=== PATIENT | male | born 1935 | race Caucasian/White ===

== ENCOUNTER 2018-05-19 09:41 | Outpatient (CLI) | payer MEDICARE, OTHER ==
[2018-05-19] VITALS (22 sets, daily range): BP systolic 128–178; BP diastolic 60–91
[~2018-05-19 09:41] MED LIST: NEBI5TAB10 PO
== END 2018-05-19 23:59 | disposition home or self-care (01) ==
LOC: CARD DIAG 09:41
PROVIDERS: ATTEND Internal Medicine Cardiovascular Disease
DX: R42 Dizziness and giddiness (principal); I10 Essential (primary) hypertension; Z87.891 Personal history of nicotine dependence
CPT/HCPCS: 93660

== ENCOUNTER 2019-12-07 06:09 | Day surgery (SDC) | payer MEDICARE ==
[2019-12-06 15:39] LABS: BASOPHILS # (AUTO) 0.1 X10'3 (0-0.2); BASOPHILS % (AUTO) 0.8 % (0-1); EOSINOPHILS # (AUTO) 0.2 X10'3 (0-0.9); EOSINOPHILS % (AUTO) 2.3 % (0-6); HEMATOCRIT 36.9 % (42.0-52.0); HEMOGLOBIN 12.7 g/dl (14.0-17.9); LYMPHOCYTES # (AUTO) 2.3 X10'3 (1.1-4.8); LYMPHOCYTES % (AUTO) 28.8 % (21-51); MEAN CORPUSCULAR HGB CONC 34.5 g/dL (33.0-36.5); MEAN CORPUSCULAR VOLUME 89.8 FL (78-98); MEAN PLATELET VOLUME 8.9 FL (7.4-10.4); MONOCYTES # (AUTO) 0.8 X10'3 (0-0.9); MONOCYTES % (AUTO) 9.4 % (2-12); NEUTROPHILS # (AUTO) 4.7 X10'3 (1.8-7.7); NEUTROPHILS % (AUTO) 58.7 % (42-75); PLATELET COUNT 238 X10'3 (140-440); RED BLOOD COUNT 4.11 X10'6 (4.70-6.10); RED CELL DISTRIBUTION WIDTH 12.7 % (11.5-14.5)
[2019-12-06 15:44] LABS: ALBUMIN 2.9 G/DL (3.4-5.0); ANION GAP 6 (8-16); BLOOD UREA NITROGEN 40 MG/DL (7-18); BUN/CREATININE RATIO 15.3 (5.4-32.0); CALCIUM 8.6 MG/DL (8.5-10.1); CHLORIDE 105 MMOL/L (99-107); CREATININE 2.61 MG/DL (0.60-1.10); GLUCOSE 99 MG/DL (70-104); POTASSIUM 4.8 MMOL/L (3.5-5.1); SODIUM 138 MMOL/L (135-145); TOTAL CARBON DIOXIDE 26.9 MMOL/L (24-32); eGFR 24 ML/MIN
[2019-12-06 15:47] LABS: PARTIAL THROMBOPLASTIN TIME 26 SECONDS (22-32)
[2019-12-07] VITALS (12 sets, daily range): BP systolic 129–178; BP diastolic 45–64
[~2019-12-07] VITALS: Ht 167.6 cm; Wt 79.7 kg
[2019-12-07] MEDS ORDERED: cefazolin/dext.iso 2gm/100ml 100 ML IV ONE (07:10)
[2019-12-07] MEDS ORDERED: normal saline 1000ml 1,000 ML IV SCH (07:10)
[2019-12-07] MEDS ORDERED: POLY17PO10 PO (07:24)
[2019-12-07] MEDS ORDERED: DOCU-148 PO (07:25)
[2019-12-07] MEDS ORDERED: vitamin D3 PO (07:26)
[2019-12-07] MEDS ORDERED: ASCO500C15 PO (07:27)
[2019-12-07] MEDS ORDERED: ASPI81TA52 PO (07:27)
[2019-12-07] MEDS ORDERED: MULT-1141 PO (07:28)
[2019-12-07] MEDS ORDERED: METO25TA6 PO (07:28)
[2019-12-07] MEDS ORDERED: AMLO2.5T2 PO (07:29)
[2019-12-07] MEDS ORDERED: ATOR10TA87 PO (07:30)
[2019-12-07] MEDS ORDERED: OMEG-166 PO (07:31)
[2019-12-07] MEDS ORDERED: PARO20TA6 PO (07:32)
[2019-12-07] MEDS ORDERED: PARO10TA4 PO ×2 (07:35→07:37)
[2019-12-07] MEDS ORDERED: CYAN500T66 PO (07:38)
[2019-12-07] MEDS ORDERED: ceFAZolin 1000mg inj ONE (07:49)
[2019-12-07] MEDS ORDERED: LIDOcaine 1% W/epiNEPHrine 1:100,000 20ml vial ONE (07:49)
[2019-12-07] MEDS ORDERED: fentaNYL/PF 50MCG/1 ML 2ML syringe ONE (07:49)
[2019-12-07] MEDS ORDERED: midazolam 2 mg/2 ml injection ONE (07:49)
[2019-12-07] MEDS ORDERED: HYDROcodone/acetaminophen 10/325mg tab PO PRN (09:55)
[2019-12-07] MEDS ORDERED: vancomycin/NS 1 GM ADD-VANTAGE 250 ML X 1 DOSE IV ONE (09:55)
[2019-12-07] MEDS ORDERED: LORazepam 1 MG tablet PO PRN (09:55)
[2019-12-07] MEDS ORDERED: HYDROcodone/acetaminophen 5mg/325mg tablet PO PRN (09:55)
== END 2019-12-07 15:15 | disposition home or self-care (01) ==
LOC: SSTAY O 06:09
PROVIDERS: ATTEND Internal Medicine Cardiovascular Disease
DX: I49.5 Sick sinus syndrome (principal); I10 Essential (primary) hypertension; E78.5 Hyperlipidemia, unspecified; Z79.01 Long term (current) use of anticoagulants; Z79.899 Other long term (current) drug therapy
CPT/HCPCS: 33208; 36415; 71046; 80048; 85025; 85610; 85730; 93005; 99152; 99153; C1785; C1894; C1898; J0690; J2250; J3010; J3370; J7030; A4565; A4620